=== PATIENT | male | born 1980 | race Native Hawaiian/Other Pacific Islander ===

== ENCOUNTER 2022-11-14 10:54 | Emergency (ER) | payer BC, SELFPAY ==
[2022-11-14 11:00] VITALS: BP 133/85; PULSE 79; RESP 15; TEMP 36.3; O2SAT 98; BMI 26.6
--- NOTE | 2022-11-14 11:03 | DI.RAD.S_ITS ---
PROCEDURE: XR SHOULDER LT MIN 2V INDICATIONS: fall with shoulder pain TECHNIQUE: Three views of the shoulder were acquired. COMPARISON: None. FINDINGS: Bones: No fractures or dislocations. No suspicious bony lesions. Visualized ribs appear intact. Soft tissues: Curvilinear ossification projecting adjacent to the greater trochanter. IMPRESSION: 1. No fracture or dislocation. 2. Findings of calcific tendinitis or calcific bursitis. Dictated by: Farheen Prieto M.D. on 11/14/2022 at 11:40 Approved by: Farheen Prieto M.D. on 11/14/2022 at 11:41
--- NOTE | 2022-11-14 12:38 | ED_ITS ---
HPI - Fall <ELISA Puga - Last Filed: 11/14/22 12:56> General Chief Complaint: Fall Stated Complaint: fall,hit head,nausea Time Seen by Provider: 11/14/22 12:12 Source: patient Mode of arrival: Ambulatory History of Present Illness HPI Narrative: 42-year-old male presents to the walk-in clinic with complaints of head and left shoulder pain secondary to a fall earlier today around 7:00 a.m.. Patient was at work carrying a tray, when he slipped on black ice and fell onto his left side hitting his left shoulder and left forehead. Patient states that he was down for only a few seconds before getting up and felt slightly dizzy at that time. Patient reports that approximately an hour later he was feeling nauseous. EMS was contacted and he was evaluated at the scene and recommended that he be seen in the emergency department. Patient declined at that time, after speaking with his partner, decided to come in to emergency department for evaluation. Patient states that he is gradually feeling better with lessening headache, etc.. Related Data Previous Rx's Medication Instructions Recorded clotrimazole 1 % topical cream 1 applic topical BID #30 grams 07/16/22 Allergies Allergy/AdvReac Type Severity Reaction Status Date / Time No Known Drug Allergies Allergy Verified 11/14/22 11:00 Review of Systems <ELISA Puga - Last Filed: 11/14/22 12:56> Review of Systems Narrative: Narrative: See HPI. GENERAL: Denies chills, fatigue, fever, sweats, blurry vision. HEENT: Denies sinus pain, ear pain, sore throat, difficulty swallowing, dizziness. RESPIRATORY: Denies dyspnea, cough, wheezing, sputum. CARDIOVASCULAR: Denies chest pain, palpitations, edema. GASTROINTESTINAL: Denies nausea, vomiting, abdominal pain, diarrhea, constipation. : Denies dysuria, frequency, incontinence, hematuria, urinary retention, flank pain. MSK: Denies weakness, joint pain, or bony pain. Endorses left shoulder discomfort. SKIN: Denies rash, skin lesions, or pruritis. NEUROLOGIC: Denies weakness, numbness, confusion. Reports resolved dizziness and improving headache pain. PSYCHIATRIC: No concerning psychosocial issues. Patient History <ELISA Puga - Last Filed: 11/14/22 12:56> Medical History Hyperlipidemia Hypertension Physical exam Tinea corporis Family History Father Prostate cancer Social History Smoking Status: Never smoker second hand exposure: Yes (childhood ) alcohol intake: current (2 drinks a week ) substance use type: does not use Smoking Status: Never smoker alcohol intake frequency: holidays/special occasions only Substance Use Type: does not use Exam <ELISA Puga - Last Filed: 11/14/22 12:56> Narrative Exam Narrative: Exam Narrative: GENERAL: This is a well-nourished, well-developed patient, in no acute distress. HEAD: Atraumatic. Normocephalic. EYES: Pupils equal round and reactive. Extraocular motions intact. No scleral icterus, injection or drainage. No raccoon eyes. ENT: Nose without bleeding, purulent drainage. Throat without erythema, tonsillar hypertrophy or exudate. Uvula midline. Airway patent. TMs and canals clear. No sinus tenderness. No Harp signs. NECK: Trachea midline. No JVD or lymphadenopathy. Nontender. CARDIOVASCULAR: Regular rate and rhythm without murmurs, peripheral pulses intact, cap refill <2 sec. RESPIRATORY: Breath sounds equal and clear bilaterally. No wheezes, rales, or rhonchi. No cough. No increased respiratory effort. No accessory muscle use. GASTROINTESTINAL: Abdomen soft, non-tender, nondistended without guarding or rebound. No suprapubic pain. MSK: Moves all extremities. Normal range of motion, no clubbing or edema. Neurovascularly intact. Tenderness of left shoulder. NEURO: A&O x 3. SKIN: Warm, dry, no rashes or lesions noted. SHOULDER: There is no swelling, bruising or asymmetry. There is no tenderness to palpation over the AC joint, coracoid or glenoid processes. There is soft tissue tenderness to palpation. Sensation grossly intact. Active and passive range of motion is limited due to pain. Resistive strength intact. Range of motion of the elbow is normal. The contralateral shoulder exam is unremarkable. Alert, oriented x 3 and appropriate historian.. CN2-12 intact PERRL, EOMs full. Upper extremity strength is equivalent. Normal pelletizer tender. No upper extremity drift. No tremor. Rhomberg negative. Finger to nose is intact and smooth. Rapid hand alternating movements intact. Heel toe tandem walk intact. Initial Vital Signs Initial Vital Signs: Vital Signs Temperature 97.4 F L 11/14/22 11:00 Pulse Rate 79 11/14/22 11:00 Respiratory Rate 15 11/14/22 11:00 Blood Pressure 133/85 11/14/22 11:00 Pulse Oximetry 98 11/14/22 11:00 Oxygen Delivery Method 11/14/22 11:00 Reviewed <Miley Nugent DO - Last Filed: 11/15/22 07:34> Initial Vital Signs Initial Vital Signs: Vital Signs Temperature 97.4 F L 11/14/22 11:00 Pulse Rate 79 11/14/22 11:00 Respiratory Rate 15 11/14/22 11:00 Blood Pressure 133/85 11/14/22 11:00 Pulse Oximetry 98 11/14/22 11:00 Oxygen Delivery Method 11/14/22 11:00 Course <ELISA Puga - Last Filed: 11/14/22 12:56> Orders Ordered: ED Orders 11/14/22 11:03 XR shoulder LT min 2V Stat Vital Signs Vital signs: Vital Signs - 8 hr 11/14/22 11:00 Temperature 97.4 F L Pulse Rate 79 Respiratory Rate 15 Blood Pressure 133/85 Pulse Oximetry 98 Oxygen Delivery Method Room Air <Miley Nugent DO - Last Filed: 11/15/22 07:34> Orders Ordered: ED Orders 11/14/22 11:03 XR shoulder LT min 2V Stat Vital Signs Vital signs: Vital Signs - 8 hr 11/14/22 11:00 Temperature 97.4 F L Pulse Rate 79 Respiratory Rate 15 Blood Pressure 133/85 Pulse Oximetry 98 Oxygen Delivery Method Room Air MDM - Fall <ELISA Puga - Last Filed: 11/14/22 12:56> Differential Diagnosis Differential diagnosis: Likely other (Left shoulder strain, closed head injury without loss of consciousness.) Imaging Data Extremity x-ray #1: Radiologist's Impression: [address] [address] XRay Report Signed Patient: Ronaldo Romero MR#: [id number] : 1980 Acct:[id number] Age/Sex: 42 / M Date of Service: 11/14/22 Loc: ED Accession Number: [id number] ?? Procedure: XR shoulder LT min 2V Ordering Provider: Miley Nugent D.O. PROCEDURE:? XR SHOULDER LT MIN 2V ? INDICATIONS:? fall with shoulder pain ? TECHNIQUE:? Three views of the shoulder were acquired.? ? COMPARISON:? None. ? FINDINGS:? ? Bones:? No fractures or dislocations.? No suspicious bony lesions.? Visualized ribs appear intact.? ? Soft tissues:? Curvilinear ossification projecting adjacent to the greater trochanter. ? IMPRESSION:? ? 1. No fracture or dislocation. ? 2. Findings of calcific tendinitis or calcific bursitis. ? ? Dictated by: Farheen Prieto M.D. on 11/14/2022 at 11:40 ? ? Approved by: Farheen Prieto M.D. on 11/14/2022 at 11:41 ? MDM Narrative Medical decision making narrative: 42-year-old male presents to the walk-in clinic with headache and left shoulder pain after falling at work earlier today. Assessment was encouraging and I do not suspect any neurological deficits. Left shoulder x-ray was normal. REAP concussion pamphlet provided to patient and partner and provider outlined worsening symptoms that would necessitate a return visit to the emergency department. Recommended Rest (modified activity), along with ice, compression wrap/splint-immobilize as directed and elevation above heart. Tylenol or Ibuprof en for discomfort. For the left shoulder discomfort. Patient and partner verbalized understanding and were agreeable with course of action. Discharge Plan Departure Patient Disposition: Home Clinical Impression: Head injury, acute Qualifiers: Encounter type: initial encounter Qualified Code(s): S09.90XA - Unspecified injury of head, initial encounter Left shoulder strain Qualifiers: Encounter type: initial encounter Qualified Code(s): S46.912A - Strain of unspecified muscle, fascia and tendon at shoulder and upper arm level, left arm, initial encounter Instructions: DI for Muscle Strain, DI for Closed Head Injury Activity Restrictions/Additional Instructions: *You have been diagnosed with a closed-head injury and left shoulder strain. Your left shoulder x-ray was normal and my assessment was encouraging. You are not exhibiting any neurological deficits. You have been giving the REAP concussion handout and we have discussed worsening symptoms that would necessitate a return visit to the emergency department. For your shoulder, Rest (modified activity), along with ice, compression wrap/splint-immobilize as directed and elevation above heart. Tylenol or Ibuprofen for discomfort. Please follow-up with your family doctor if symptoms persist, or the emergency department if symptoms worsen. *What to do: *Please continue to take your regular medications as directed. [ ] New medication prescriptions sent to your pharmacy: [ ] [ ] New medication written as a paper prescription [x ] No new medications given *Please follow up with your primary care provider in 2-3 days, call for an appointment. Let them know you were seen in the Emergency Department and that we ask that you be seen in follow up. We will electronically transmit a record of today's note if your PCP is in our system *If you do not have a primary care provider please contact the [facility] Resource line at [phone]. They will ask some questions about your medical history and help get you set up with a doctor in the community. ? Return to ER if you should have any new, worsening or concerning symptoms, such as worsening pain, severe headache, confusion, chest pain, difficulty breathing, fever greater than 101 F, shaking chills, persistent vomiting to the point that you cannot drink fluids, or other new or worsening symptoms. Prescriptions: No Action clotrimazole 1 % cream 1 applic topical BID Qty: 30 2RF Referrals: Fletcher Schmid MD [Primary Care Provider] - Visit Report Forms: Patient Portal/API <Miley Nguent DO - Last Filed: 11/15/22 07:34> Cosign ED Attending Stephonature Attestation: I was immediately available in the department for consultation. Documentation has been reviewed.
== END 2022-11-14 12:47 | disposition home or self-care (01) ==
PROVIDERS: Emergency Provider Registered Nurse; PCP Pediatrics
DX: S09.90XA Unspecified injury of head, initial encounter (principal); S46.912A Strain of unspecified muscle, fascia and tendon at shoulder and upper arm level, left arm, initial encounter; W00.0XXA Fall on same level due to ice and snow, initial encounter
CPT/HCPCS: 73030; 99281; 99283

== ENCOUNTER → 2022-12-16 12:13 | Outpatient (CLI) | payer BC, SELFPAY ==
--- NOTE | 2022-12-16 12:15 | DI.RAD.S_ITS ---
PROCEDURE: XR FOOT RT MIN 3V INDICATIONS: Right heel pain x 3 weeks TECHNIQUE: 3 views of the foot were acquired. COMPARISON: None. FINDINGS: Bones: No fractures or dislocations. No suspicious bony lesions. Mild hallux valgus metatarsus prima varus alignment and medial bunion. Prominent retrocalcaneal plantar bone spurs. Soft tissues: No tibiotalar joint effusion. Achilles tendon appears normal. IMPRESSION: 1. Mild hallux valgus alignment and medial bunion 2. Calcaneal enthesopathy. Dictated by: Da Lin Marian Interpreted: London Caicedo MD on 12/16/2022 at 13:08 Transcribed by: MICHAEL on 12/16/2022 at 13:09 Approved by: London Caicedo M.D. on 12/16/2022 at 20:22
== END ==
PROVIDERS: PCP Family Medicine; Referring Provider Nurse Practitioner Family; Visit Provider Nurse Practitioner Family
DX: M20.11 Hallux valgus (acquired), right foot (principal); M21.611 Bunion of right foot; M77.31 Calcaneal spur, right foot; M79.671 Pain in right foot
CPT/HCPCS: 73630

== ENCOUNTER → 2023-12-04 06:55 | Outpatient (CLI) | payer BC, SELFPAY ==
[2023-12-04 10:26] LABS: Alanine Aminotransferase 27 IU/L (<50); Albumin 4.3 g/dL (3.5-5.0); Albumin Globulin Ratio 1.2 (1.0-2.8); Alkaline Phosphatase 53 U/L (38-126); Aspartate Aminotransferase 25 IU/L (17-59); BUN Creatinine Ratio 16.1 (6-22); Bilirubin Total 0.6 mg/dL (0.2-1.3); Blood Urea Nitrogen 15 mg/dL (9-20); Calcium 9.8 mg/dL (8.4-10.2); Carbon Dioxide 26 mmol/L (22-32); Chloride 101 mmol/L (98-107); Cholesterol 223 mg/dL (140-199); Estimated Glomerular Filt Rate > 60 mL/min (>60); Globulin 3.5 g/dL (1.7-4.1); Glucose 98 mg/dL (70-100); HDL Cholesterol 38 mg/dL (40-60); HEMOLYSIS < 15 (0-50); LDL Cholesterol Calculated 165 mg/dL (<100); Potassium 4.7 mmol/L (3.4-5.1); Sodium 137 mmol/L (137-145); Total Protein 7.8 g/dL (6.3-8.2); Triglycerides 99 mg/dL (35-150)
== END ==
LOC: LAB 06:56
PROVIDERS: PCP Student in an Organized Health Care Education/Training Program; Referring Provider Student in an Organized Health Care Education/Training Program; Visit Provider Student in an Organized Health Care Education/Training Program
DX: I10 Essential (primary) hypertension (principal)
CPT/HCPCS: 36415; 80053; 80061

== ENCOUNTER → 2024-04-12 15:01 | Outpatient (CLI) | payer BC, SELFPAY ==
[2024-04-12 16:40] LABS: Prostate Specific Antigen Scrn 0.987 ng/mL (0.1-4.0)
== END ==
PROVIDERS: PCP Student in an Organized Health Care Education/Training Program; Referring Provider Student in an Organized Health Care Education/Training Program; Visit Provider Student in an Organized Health Care Education/Training Program
DX: Z12.5 Encounter for screening for malignant neoplasm of prostate (principal); Z80.42 Family history of malignant neoplasm of prostate
CPT/HCPCS: 36415; G0103

== ENCOUNTER → 2025-05-14 08:30 | Outpatient (CLI) | payer BC, SELFPAY ==
[2025-05-14 09:11] LABS: Hematocrit 46.2 % (41-53); Hemoglobin 15.2 g/dL (13.5-17.5); Mean Corpuscular Hemoglobin 27.1 PG (26-34); Mean Corpuscular Volume 82.2 fL (80-100); Platelet Count 259 X10^3/uL (150-400); Red Blood Cell Count 5.62 X10^6/uL (4.5-5.9); Red Cell Distribution Width 15.8 % (11.6-14.8); White Blood Cell Count 5.3 X10^3/uL (4.5-11.0)
[2025-05-14 09:37] LABS: Alanine Aminotransferase 22 IU/L (<50); Albumin 4.6 g/dL (3.5-5.0); Albumin Globulin Ratio 1.4 (1.0-2.8); Alkaline Phosphatase 53 U/L (38-126); Aspartate Aminotransferase 26 IU/L (17-59); BUN Creatinine Ratio 20.9 (6-22); Bilirubin Total 0.8 mg/dL (0.2-1.3); Blood Urea Nitrogen 19 mg/dL (9-20); Calcium 9.3 mg/dL (8.4-10.2); Carbon Dioxide 26 mmol/L (22-32); Chloride 104 mmol/L (98-107); Cholesterol 221 mg/dL (140-199); Estimated Glomerular Filt Rate > 60 mL/min (>60); Globulin 3.2 g/dL (1.7-4.1); Glucose 97 mg/dL (70-99); HDL Cholesterol 39 mg/dL (40-60); HEMOLYSIS < 15 (0-50); LDL Cholesterol Calculated 164 mg/dL (<100); Potassium 4.5 mmol/L (3.4-5.1); Sodium 138 mmol/L (137-145); Total Protein 7.8 g/dL (6.3-8.2); Triglycerides 92 mg/dL (35-150)
[2025-05-14 09:45] LABS: Neutrophils Absolute Manual 3021 /uL (3000-5900); Total Cells Counted 100
[2025-05-14 09:46] LABS: RBC Morphology Normal Morphology
[2025-05-14 10:04] LABS: Prostate Specific Antigen Scrn 1.75 ng/mL (0.1-4.0)
== END ==
PROVIDERS: PCP Student in an Organized Health Care Education/Training Program; Referring Provider Student in an Organized Health Care Education/Training Program; Visit Provider Student in an Organized Health Care Education/Training Program
DX: I10 Essential (primary) hypertension (principal); Z12.5 Encounter for screening for malignant neoplasm of prostate
CPT/HCPCS: 36415; 80053; 80061; 85025; G0103